=== PATIENT | female | born 1975 | race African-American/Black ===

== ENCOUNTER 2020-06-19 09:10 | Emergency (ER) | payer MEDICAID, SELFPAY ==
--- NOTE | ~2020-06-19 | US_ITS ---
EXAMINATION: US ABDOMEN LIMITED CLINICAL INFORMATION: Right upper quadrant pain, positive Vegas's sign. COMPARISON: None TECHNIQUE: Real-time imaging of the right upper quadrant abdominal viscera. FINDINGS: PANCREAS: Visualized portions unremarkable. The tail is partially obscured by bowel gas shadowing. LIVER: Diffuse increased echotexture without focal abnormality. GALLBLADDER: Unremarkable. COMMON BILE DUCT: Normal in caliber measuring 0.3 cm in diameter. RIGHT KIDNEY: 11.3 cm. Unremarkable. FREE FLUID: None. US/US abdomen limited IMPRESSION: Hepatic steatosis without other significant abnormality.
[2020-06-19 09:19] VITALS: BP 104/55; PULSE 71; RESP 20; TEMP 36.6; O2SAT 97; BMI 33.6
[2020-06-19 10:58] LABS: Glucose Urine UA NEG (NEG); Leukocyte Esterase Urine NEG (NEG); Nitrite Urine POS (NEG); PH 5.5 (5.0-8.0); Specific Gravity - Urine >= 1.030 (1.005-1.025); UACC Culture Trigger YES; Urine Blood NEG (NEG); Urine Ketones NEG (NEG); Urine Protein TRACE MG/DL (NEG-TRACE)
[2020-06-19 10:59] LABS: Appearance Urine HAZY; Color Urine YELLOW
[2020-06-19 11:22] LABS: Bacteria Urine 3+ /LPF; RBC Urine 0-2 /HPF (0); Squamous Epithelial Cell Urine 2+ /LPF
--- NOTE | 2020-06-19 11:39 | ED_ITS ---
HPI - Abdominal Pain General Chief Complaint: Abdominal Pain Stated Complaint: UPPER ABD PAIN Time Seen by Provider: 06/19/20 11:23 Source: patient Mode of arrival: ambulatory Limitations: no limitations History of Present Illness HPI narrative: Patient comes emergency room complaining of right upper quadrant pain for the last 2 days. Patient states she has noticed whenever she eats greasy foods, the pain gets worse. However, since yesterday, patient has been avoiding to eat because every time she eats anything, she has significant right upper quadrant pain. This morning, patient woke up with the pain and has not gone away, this time unrelated to meals. Patient complaining of nausea, no vomiting or diarrhea. Patient denies fever, no URI or UTI symptoms MD elicited complaint: abdominal pain Related Data Allergies Allergy/AdvReac Type Severity Reaction Status Date / Time penicillin V Allergy Unknown rash Verified 09/30/18 00:00 Review of Systems Review of Systems Constitutional : No Weight loss, No Fever, No Chills, No Night Sweats, No Fati diana, No Malaise ENT/Mouth : No Hearing loss, No Ear Pain, No Nasal Congestion, No Sinus Pain, No Hoarseness, No sore throat, No Rhinorrhea, No Swallowing Difficulty Eyes: No Eye Pain, No Swelling, No Redness, No Foreign Body, No Discharge, No Vision Changes Cardiovascular : No Chest Pain, No SOB, No Dyspnea on Exertion, No Orthopnea, No Edema, No Palpitations Respiratory : No Cough, No Sputum, No Wheezing, No Smoke Exposure, No Dyspnea Gastrointestinal : Complaining of nausea, no vomiting No Diarrhea, No Constipation, complaining of right upper quadrant abdominal Pain, No Hematochezia, No Melena Genitourinary : no irregular bleeding, No Dysuria, No Urinary Frequency, No Hematuria, No Urinary Incontinence, No Urgency, No Flank Pain, No Urinary Flow Changes, No Hesitancy Musculoskeletal : No joint pain, No Myalgias, No Joint Swelling Skin : No Skin Lesions, No rash Neuro : No Weakness, No Numbness, No Paresthesias, No Loss of Consciousness, No Dizziness, No Headache Psych : No Anxiety/Panic, No Depression, No SI/HI/AH/VH, No Social Issues, Heme/Lymph: No Bruising, No Bleeding,No Lymphadenopathy Endocrine : No Polyuria, No Polydipsia, No Temperature Intolerance Physical Exam Vital Signs: Vital Signs: Last Vital Signs Temp 97.8 F 06/19/20 09:19 Pulse 64 06/19/20 12:24 Resp 18 06/19/20 12:24 BP 104/47 L 06/19/20 12:24 Pulse Ox 100 06/19/20 12:24 Body Mass Index 33.6 Appearance: Alert. Oriented X3. No acute distress. Eyes: Pupils equal, round and reactive to light. ENT: Pharynx normal. Neck: Normal inspection. Neck supple. No lymph nodes noted. No crepitus CVS: Normal heart rate and rhythm. Pulses normal. Normal S1 and S2 Respiratory: No respiratory distress. Breath sounds normal. No Wheezing. No rales Abdomen: Soft , tenderness to palpation in epigastric area, positive Vegas sign, guarding, no rebound, No rigidity. No distention. Skin: Skin warm and dry. Normal skin color. Normal skin turgor. Extremities: No lower extremity edema. No lower extremity edema. No Lacerations. No Rash Neuro: Oriented X 3. No motor deficit. No sensory deficit. Moving all extermities. No slurred speech. Course Course Course Narrative: I discussed the labs and imaging with the patient, no evidence of acute cholecystitis. I sent, patient feeling better. Discussed with the patient that she has a big steatosis, patient will follow-up with her primary care physician. MDM - Abdominal Pain Differential Diagnosis Differential diagnosis: Likely abdominal pain, calculus of kidney and pa ncreatitis Lab Data Result diagrams: 06/19/20 11:49 06/19/20 11:49 Labs: Lab Results 06/19/20 06/19/20 06/19/20 Range/Units 10:28 11:49 11:49 WBC 7.9 (4.8-10.8) X10*3/uL RBC 4.37 (4.20-5.50) X10*6/uL Hgb 10.1 L (12.0-16.0) g/dl Hct 33.4 L (37-47) % MCV 76.4 L (80-98) fL MCH 23.1 L (27.0-33.0) pg MCHC 30.2 L (31.0-35.0) g/dl RDW 16.2 H (11.0-16.0) % Plt Count 300 (160-400) X10*3/uL MPV 10.2 (9.4-12.3) fL Immature Gran % (Auto) 0.5 H (0.0-0.4) % Neut % (Auto) 58.7 (45-73) % Lymph % (Auto) 33.6 (20-40) % [place] % (Auto) 5.6 (2-11) % Eos % (Auto) 1.1 (0-4) % Baso % (Auto) 0.5 (0-2) % Lymph # (Auto) 2.7 (1.2-4.9) X10*3/uL [place] # (Auto) 0.4 (0.1-1.2) X10*3/uL Eos # (Auto) 0.1 (0.0-0.4) X10*3/uL Baso # (Auto) 0.0 (0.0-0.2) X10*3/uL Abs Immat Gran (auto) 0.04 H (0.00-0.03) X10*3/uL Absolute Neuts (auto) 4.6 (2.0-8.3) X10*3/uL Absolute Nucleated RBC 0.000 (0.0-0.012) X10*3/uL Nucleated RBC % (auto) 0.0 (0.0-0.2) /100WBC Sodium 139 (135-145) mmol/L Potassium 4.0 (3.3-5.1) mmol/L Chloride 104 (96-108) mmol/L Carbon Dioxide 27 (22-29) mmol/L Anion Gap 12 (12-20) BUN 9 (9-16) mg/dL Creatinine 0.70 (0.5-1.4) mg/dL Estim Creat Clear Calc 103.4 Estimated GFR > 60 Random Glucose 86 (60-115) mg/dL Calcium 8.7 (8.4-10.2) mg/dL Total Bilirubin 0.3 (0.0-1.0) mg/dL Direct Bilirubin < 0.2 (0.0-0.5) mg/dL AST 68 H (5-31) U/L ALT 68 H (0-31) U/L Alkaline Phosphatase 100 (39-117) U/L Total Protein 8.0 (6.5-8.0) g/dL Albumin 4.2 (3.5-5.0) g/dL Lipase 11 (8-78) U/L Urine Color YELLOW Urine Appearance HAZY Urine pH 5.5 (5.0-8.0) Ur Specific [place] >= 1.030 H (1.005-1.025) Urine Protein TRACE (NEG-TRACE) MG/DL Urine Glucose (UA) NEG (NEG) MG/DL Urine Ketones NEG (NEG) MG/DL Urine Blood NEG (NEG) Urine Nitrite POS H (NEG) Ur Leukocyte Esterase NEG (NEG) Urine RBC 0-2 (0) /HPF Urine WBC 1-4 (0-4) /HPF Ur Squamous Epith Cells 2+ /LPF Urine Bacteria 3+ /LPF Imaging Data US - abdomen: Radiologist's impression: FINDINGS: PANCREAS: Visualized portions unremarkable. The tail is partially obscured by bowel gas shadowing. LIVER: Diffuse increased echotexture without focal abnormality. GALLBLADDER: Unremarkable. COMMON BILE DUCT: Normal in caliber measuring 0.3 cm in diameter. RIGHT KIDNEY: 11.3 cm. Unremarkable. FREE FLUID: None. US/US abdomen limited IMPRESSION: Hepatic steatosis without other significant abnormality. Discharge Plan Discharge Clinical Impression: Abdominal pain Qualifiers: Abdominal location: right upper quadrant Qualified Code(s): R10.11 - Right upper quadrant pain Patient Disposition: Home, Self-Care Instructions: Abdominal Pain (ED) Additional Instructions: Please follow-up with your primary care physician tomorrow. If you have any worsening or new symptoms, please return to the emergency room or call 1 [facility] Past Medical History Medical History (Updated 06/19/20 @ 13:23 by Shelley Koenig MD) Anemia Anxiety Asthma Depression Pre-diabetes Surgical History H/O tubal ligation Social History Social History Smoking Status: Never smoker Use of substances other than those prescribed or required for medical reasons: No Advance Directives: No Advance Directives Information Provided: No
[2020-06-19] MEDS: 0.9 % Sodium Chloride 1,000 ML 999 ML IVCONT (11:50)
[2020-06-19 11:59] LABS: MANUAL DIFF FLAG NO
[2020-06-19 12:00] LABS: Basophils Percent Auto 0.5 % (0-2); Eosinophils Absolute Auto 0.1 X10*3/uL (0.0-0.4); Eosinophils Percent Auto 1.1 % (0-4); Hematocrit 33.4 % (37-47); Hemoglobin 10.1 g/dl (12.0-16.0); Imm Gran Abs Auto 0.04 X10*3/uL (0.00-0.03); Imm Gran Pct Auto 0.5 % (0.0-0.4); Lymphocytes Absolute Auto 2.7 X10*3/uL (1.2-4.9); Lymphocytes Percent Auto 33.6 % (20-40); Mean Corpuscular HGB Conc 30.2 g/dl (31.0-35.0); Mean Corpuscular Hemoglobin 23.1 pg (27.0-33.0); Mean Corpuscular Volume 76.4 fL (80-98); Mean Platelet Volume 10.2 fL (9.4-12.3); Monocytes Absolute Auto 0.4 X10*3/uL (0.1-1.2); Monocytes Percent Auto 5.6 % (2-11); Neutrophils Absolute Auto 4.6 X10*3/uL (2.0-8.3); Neutrophils Percent Auto 58.7 % (45-73); Platelet Count 300 X10*3/uL (160-400); Red Blood Count 4.37 X10*6/uL (4.20-5.50); Red Cell Distribution Width 16.2 % (11.0-16.0); White Blood Count 7.9 X10*3/uL (4.8-10.8)
[2020-06-19 12:23] LABS: Alanine Aminotransferase 68 U/L (0-31); Albumin Level 4.2 g/dL (3.5-5.0); Alkaline Phosphatase 100 U/L (39-117); Anion Gap 12 (12-20); Aspartate Amino Transferase 68 U/L (5-31); Bilirubin Direct < 0.2 mg/dL (0.0-0.5); Bilirubin Total 0.3 mg/dL (0.0-1.0); Blood Urea Nitrogen 9 mg/dL (9-16); Calcium 8.7 mg/dL (8.4-10.2); Carbon Dioxide 27 mmol/L (22-29); Chloride 104 mmol/L (96-108); Creatinine Clr Calc Pharmacy 103.4; Estimated Glomerular Filt Rate > 60; Glucose Random 86 mg/dL (60-115); Lipase 11 U/L (8-78); Sodium 139 mmol/L (135-145)
[2020-06-19 12:24] VITALS: BP 104/47; PULSE 64; RESP 18; O2SAT 100
[2020-06-19] MEDS: Ketorolac Tromethamine 30 MG/ML VIAL IVPUSH (13:34)
== END 2020-06-19 13:41 | disposition home or self-care (01) ==
PROVIDERS: Emergency Provider Emergency Medicine; PCP Internal Medicine
DX: R10.11 Right upper quadrant pain (principal); R73.03 Prediabetes; J45.909 Unspecified asthma, uncomplicated
CPT/HCPCS: 36415; 76705; 80048; 80076; 81001; 81003; 83690; 85025; 87086; 87088; 87186; 96361; 96374; 99284; J1885

== ENCOUNTER 2020-06-22 11:27 | Outpatient (REF) | payer MEDICAID, SELFPAY ==
--- NOTE | ~2020-06-22 | US_ITS ---
EXAMINATION: ULTRASOUND PELVIS COMPLETE. CLINICAL INFORMATION: Irregular menses. COMPARISON: Ultrasound pelvis 06/10/2018 TECHNIQUE: Transabdominal and transvaginal ultrasound the pelvis is performed. FINDINGS: The uterus is anteverted and anteflexed measuring 9.7 cm in length, 5.6 cm in AP and 6.3 cm in transverse dimension. The endometrium is heterogeneous with thickness of 1.9 cm. There are few subcentimeter hypoechoic cystic areas with the largest area measuring 0.8 cm.. There is a hypoechoic lesion in the posterior uterus measuring 1.3 x 1.4 x 1.4 cm suggestive of fibroids. No additional lesions seen. There are small anechoic nabothian cysts in the cervix The right ovary measures 3.2 x 9.9 x 2.0 cm and volume 6.37 mL. It is unremarkable. Previously right ovary measured 1.7 x 2.4 x 1.6 cm and volume 3.4 mL. The left ovary measures 3.8 x 2.4 x 1.9 cm and volume 9.1 mL. There is a dominant follicle measuring 1.8 cm. Previously left ovary measured 1.5 x 1.9 x 1.4 cm and volume 2.2 mL. US/US pelvic complete IMPRESSION: Unremarkable ovaries. Small nabothian cysts in cervix. The uterus is unremarkable except for heterogeneous appearing endometrium and endometrial cyst.
--- NOTE | ~2020-06-22 | US_ITS ---
EXAMINATION: ULTRASOUND PELVIS COMPLETE. CLINICAL INFORMATION: Irregular menses. COMPARISON: Ultrasound pelvis 06/10/2018 TECHNIQUE: Transabdominal and transvaginal ultrasound the pelvis is performed. FINDINGS: The uterus is anteverted and anteflexed measuring 9.7 cm in length, 5.6 cm in AP and 6.3 cm in transverse dimension. The endometrium is heterogeneous with thickness of 1.9 cm. There are few subcentimeter hypoechoic cystic areas with the largest area measuring 0.8 cm.. There is a hypoechoic lesion in the posterior uterus measuring 1.3 x 1.4 x 1.4 cm suggestive of fibroids. No additional lesions seen. There are small anechoic nabothian cysts in the cervix The right ovary measures 3.2 x 9.9 x 2.0 cm and volume 6.37 mL. It is unremarkable. Previously right ovary measured 1.7 x 2.4 x 1.6 cm and volume 3.4 mL. The left ovary measures 3.8 x 2.4 x 1.9 cm and volume 9.1 mL. There is a dominant follicle measuring 1.8 cm. Previously left ovary measured 1.5 x 1.9 x 1.4 cm and volume 2.2 mL. US/US transvaginal IMPRESSION: Unremarkable ovaries. Small nabothian cysts in cervix. The uterus is unremarkable except for heterogeneous appearing endometrium and endometrial cyst.
== END 2020-06-22 11:28 | disposition home or self-care (01) ==
LOC: HO.US 11:27
PROVIDERS: Visit Provider Internal Medicine
DX: N92.5 Other specified irregular menstruation (principal)
CPT/HCPCS: 76830; 76856

== ENCOUNTER 2020-08-17 11:39 | Outpatient (REF) | payer MEDICAID, SELFPAY ==
[2020-08-17 14:28] LABS: MANUAL DIFF FLAG NO
[2020-08-17 14:38] LABS: Basophils Percent Auto 0.2 % (0-2); Eosinophils Absolute Auto 0.1 X10*3/uL (0.0-0.4); Eosinophils Percent Auto 1.3 % (0-4); Hematocrit 31.4 % (37-47); Hemoglobin 9.2 g/dl (12.0-16.0); Imm Gran Abs Auto 0.03 X10*3/uL (0.00-0.03); Imm Gran Pct Auto 0.4 % (0.0-0.4); Lymphocytes Absolute Auto 2.8 X10*3/uL (1.2-4.9); Lymphocytes Percent Auto 33.7 % (20-40); Mean Corpuscular HGB Conc 29.3 g/dl (31.0-35.0); Mean Corpuscular Hemoglobin 22.8 pg (27.0-33.0); Mean Corpuscular Volume 77.7 fL (80-98); Mean Platelet Volume 10.6 fL (9.4-12.3); Monocytes Absolute Auto 0.5 X10*3/uL (0.1-1.2); Monocytes Percent Auto 6.1 % (2-11); Neutrophils Absolute Auto 4.8 X10*3/uL (2.0-8.3); Neutrophils Percent Auto 58.3 % (45-73); Platelet Count 321 X10*3/uL (160-400); Red Blood Count 4.04 X10*6/uL (4.20-5.50); Red Cell Distribution Width 16.4 % (11.0-16.0); White Blood Count 8.2 X10*3/uL (4.8-10.8)
[2020-08-17 15:17] LABS: Ferritin 12 ng/mL (10-250)
[2020-08-17 15:33] LABS: Folate 10.3 ng/mL (> or = 4.0); Vitamin B12 240 pg/mL (200-900)
== END 2020-08-17 11:40 | disposition home or self-care (01) ==
LOC: HO.LAB 11:39
PROVIDERS: PCP Internal Medicine; Referring Provider Internal Medicine; Visit Provider Physician Assistant
DX: R74.01 Elevation of levels of liver transaminase levels (principal); D64.9 Anemia, unspecified; K59.09 Other constipation; K21.9 Gastro-esophageal reflux disease without esophagitis; R10.11 Right upper quadrant pain; R14.0 Abdominal distension (gaseous); R73.03 Prediabetes; Z88.0 Allergy status to penicillin; Z98.51 Tubal ligation status
CPT/HCPCS: 36415; 82607; 82728; 82746; 85025; 99202

== ENCOUNTER 2020-08-23 13:22 | Outpatient (REF) | payer MEDICAID, SELFPAY | END 2020-08-23 13:23 | disposition home or self-care (01) | LOC: HO.LNP 13:22 | PROVIDERS: Visit Provider Physician Assistant | DX: A04.8 Other specified bacterial intestinal infections (principal) | CPT/HCPCS: 87338 ==

== ENCOUNTER 2020-09-06 11:42 | Day surgery (SDC) | payer MEDICAID, SELFPAY ==
[2020-08-31 11:33] VITALS: BMI 38.4
--- NOTE | 2020-09-05 09:18 | P.CONAN_ITS ---
Documented by User: Lalitha Rivera 09/05/20 09:20 HPI - Anesthesia Eval Consult details Narrative: 45yo F for Upper Endoscopy and Colonoscopy [facility] Active Problems Active Problems: All Active Problems (Updated 08/17/20 @ 15:30 by Celeste Barros PA-C) Language barrier (Acute) History of ulcer disease (Acute) Acid reflux (Acute) Chronic constipation (Acute) Anemia (Acute) Past Medical History Medical History Anemia Anxiety Asthma Chronic constipation Depression History of ulcer disease Pre-diabetes Family History Family History Mother Diabetes Father Diabetes Heart attack Surgical History Surgical History H/O tubal ligation Social History Social History Household Members: Significant Other Alcohol intake: never Smoking Status: Never smoker Use of substances other than those prescribed or required for medical reasons: No Advance Directives Information Provided: No Current occupational status: employed Current occupation: [employer] Allergies Allergy/AdvReac Type Severity Reaction Status Date / Time penicillin V Allergy Intermediate rash Verified 08/31/20 11:27 Exam Exam Date and Time: September 05, 2020 0918 Height,Weight and Vital Signs: Height 5 ft 3 in Weight 98.43 kg Pertinent Lab Results Pertinent Lab Results: Laboratory Tests 06/19/20 08/17/20 11:49 13:19 WBC 8.2 Hgb 9.2 L Hct 31.4 L Plt Count 321 Sodium 139 Potassium 4.0 Chloride 104 Carbon Dioxide 27 BUN 9 Creatinine 0.70 Assessment and Plan Assessment Anesthesia Assessment: Chart Reviewed Documented by User: Vickie Maria 09/06/20 13:40 PMFSH Past Medical History Medical History Anemia Anxiety Asthma Chronic constipation Depression History of ulcer disease Pre-diabetes Family History Family History Mother Diabetes Father Diabetes Heart attack Family history of problems with anesthesia: No Surgical History Surgical History H/O tubal ligation History of Problems with Anesthesia: No Social History Social History Household Members: Significant Other Alcohol intake: never Smoking Status: Never smoker Use of substances other than those prescribed or required for medical reasons: No Advance Directives Information Provided: No Current occupational status: employed Current occupation: [employer] Meds Allergies Allergy/AdvReac Type Severity Reaction Status Date / Time penicillin V Allergy Intermediate rash Verified 08/31/20 11:27 Exam Height,Weight and Vital Signs: Vital Signs Temp Pulse Resp BP Pulse Ox 09/06/20 12:17 97.2 F 59 16 120/62 99 Airway Mallampati Class: II TM Dist: >3cm Neck ROM: Full Loose/Missing/Broken Teeth: Yes (Missing some) Heart: RRR Lungs: CTAB Assessment and Plan Assessment Anesthesia Assessment: Anesthesia Plan Discussed and Chart Reviewed Final Anesthetic Review NPO: Yes ASA Class: III Final Preanesthetic Review: No Changes in Pt Med Stat, Meds/Allgs Chart Reviewed, Consent Obtained/Reviewed and Anes Risks/Benef Reviewed Patient Risk: Intermediate Procedure Risk: Low Assessment/Block/Sedation in SS: Assess/Block/Sedation-SS Anesthetic Plan Anesthetic Plan: MAC: Disposition: Standard PACU
[2020-09-06 12:17] VITALS: BP 120/62; PULSE 59; RESP 16; TEMP 36.2; O2SAT 99
[2020-09-06] MEDS: Lactated Ringers 1,000 ML 100 ML IVCONT (12:28)
--- NOTE | 2020-09-06 14:06 | P.OP_ITS ---
Operative Note Operative Note Date of Service: 09/06/20 Narrative: Pre-op diagnosis: Colon cancer screening, right upper quadrant pain, chronic constipation, abdominal bloating Post-op diagnosis: other (Gastritis, diverticulosis) Procedure: FLEXIBLE TRANSORAL UPPER GASTROINTESTINAL ENDOSCOPY WITH BIOPSIES AND COLONOSCOPY TILL CECUM UPPER ENDOSCOPY Consent: Indications for the procedure and potential complications of bleeding, perforation, reaction to medications and missed diagnosis were discussed with the patient and informed consent was obtained. Instrument: Olympus GIF H 190 mid size upper endoscope Monitoring: Vital signs and clinical assessment, continuous EKG monitoring, Pulse oximetry, Carbon Dioxide monitoring and blood pressure monitoring were done throughout the procedure. Procedure: The patient was placed in the left lateral decubitis position and pre-procedure medications were administered and a bite block was placed. The endoscope was inserted into the mouth and advanced under direct vision to the third part of duodenum. A careful inspection was made as the upper endoscope was withdrawn including a retroflexed examination of the proximal stomach; Findings and interventions are described below. Findings: Larynx: Normal Esophagus: GE junction at 36 cms.. No esophagitis or Tamayo's. Stomach: Moderate diffuse gastric erythema with submucosal hemorrhages in the gastric body. Biopsies were obtained from the body and antrum. Grade 2 flap valve on retroflexed examination of the cardia. Duodenum: Normal bulb and descending duodenum. Biopsies were obtained from 3rd part of duodenum to check for celiac sprue. Intervention: Biopsies as noted above COLONOSCOPY PROCEDURE NOTE Consent: Indications for the procedure and potential complications of bleeding, perforation, reaction to medications and missed diagnosis were discussed with the patient and informed consent was obtained. Instrument: Olympus PCF H 190 L variable stiffness pediatric colonoscope Monitoring: Vital signs and clinical assessment, intermittent blood pressure monitoring, continuous EKG monitoring, Pulse oximetry and Carbon Dioxide monitoring were done throughout the procedure. Colon withdrawl time was 35 minutes. Procedure: The patient was placed in the left lateral decubitis position and pre-procedure medications were administered. After a digital rectal examination of the ano-rectum, the video colonoscope was inserted into the rectum and advanced through the colon to the cecum. The colonoscope was slowly withdrawn in a retrograde panoramic fashion and the colon mucosa was carefully examined including a retroflexed view of the rectum. Findings and interventions are described below. Procedure Difficulty: : Without difficulty Findings: Terminal Ileum: Not evaluated Cecum: Partially evaluated due to poor prep Ascending Colon: Partially evaluated due to poor prep Transverse Colon: Normal Descending Colon: Moderate diverticulosis Sigmoid Colon: Severe diverticulosis Rectum: Normal Ano-rectum: Perianal skin tags Colon preparation: Good after copious irrigation in the transverse and left colon and poor in the right colon. Impression and Post Procedure Diagnosis: Endoscopy Findings: STOMACH: Gastritis DUODENUM: Normal - biopsied to check for celiac sprue Colonoscopy Findings: No polyps were detected Moderate to severe diverticulosis seen in the left colon Plan: Await pathology results Patient has an appointment on 09/26/20 in the GI [facility] with RACHEL Carrillo . Repeat Colonoscopy interval based on path results - in 1-2 years due to fair to poor prep in the right colon OR consider checking a stool FIT test and if negative, repeat colon in 5 yrs. Above findings were reviewed with the patient and Gastritis and diverticulosis handouts were given in the discharge area Surgeon: Tawanna Cisneros MD Was an Hand Spring Former used for this Procedure?: Yes Hand Spring Former: Kia Lee Estimated blood loss (mL): 0 Pathology: other (A. SMALL BOWEL BX'S R/O CELIACS B. GASTRIC ANTRUM BX'S R/O H. PYLORI C. GASTRIC BODY BX'S R/O GASTRITIS) Condition: stable Disposition: PACU
--- NOTE | 2020-09-06 14:06 | MHC.SHP ---
Pre-Procedural Eval Section A The patient is an INPATIENT: No Changes since office visit: Yes Patient answered all questions; No Cold of Flu in the past 2 weeks, No New Medical Problems and No Changes in Medication The History & Physical has been completed within 30 days and I have reviewed it.: Yes Section B Chief Complaint: Anemia Allergies: Allergies Allergy/AdvReac Type Severity Reaction Status Date / Time penicillin V Allergy Intermediate rash Verified 08/31/20 11:27 Exam Surgical H&P Exam: Normal: Heart, Normal: Lungs, Normal: Extremities and Normal: Abdomen Plan Diagnosis/Plan: Unchanged I have reviewed the history and physical and performed a pertinent physical examination on my patient. No changes have occurred unless specified.
[2020-09-06 15:08] VITALS: BP 109/57; PULSE 63; RESP 14; TEMP 36.1; O2SAT 97
[2020-09-06 15:22] VITALS: BP 131/86; PULSE 61; RESP 16; TEMP 36.1; O2SAT 98
== END 2020-09-06 15:52 ==
LOC: HO.SSS 11:42
PROVIDERS: PCP Internal Medicine; Visit Provider Internal Medicine Gastroenterology
PROC: (CPT 45378; principal; 2020-09-06 12:20)
DX: Z12.11 Encounter for screening for malignant neoplasm of colon (principal); K57.30 Diverticulosis of large intestine without perforation or abscess without bleeding; K64.4 Residual hemorrhoidal skin tags; K59.09 Other constipation; D64.9 Anemia, unspecified; K29.51 Unspecified chronic gastritis with bleeding; B96.81 Helicobacter pylori [H. pylori] as the cause of diseases classified elsewhere; J45.909 Unspecified asthma, uncomplicated; Z79.899 Other long term (current) drug therapy; Z88.0 Allergy status to penicillin
CPT/HCPCS: 45378; 43239; 88305; 88342; J3010

== ENCOUNTER 2020-09-15 14:18 | Outpatient (REF) | payer MEDICAID, SELFPAY ==
--- NOTE | ~2020-09-15 | XR_ITS ---
EXAMINATION: CR X-RAY THORACIC AND LUMBAR SPINE 3 VIEW CLINICAL INFORMATION: Back pain. COMPARISON: None TECHNIQUE: 3 views each of the thoracic and lumbar spine were obtained. FINDINGS: Thoracic spine: Normal thoracic kyphosis and spinal alignment is seen. The vertebral bodies and intervertebral disc spaces are unremarkable. There is no acute fracture. The soft tissues are unremarkable. Lumbar spine: There is normal lumbar lordosis and spinal alignment. The vertebral bodies and intervertebral disc spaces are unremarkable. There is no acute fracture. The soft tissues are unremarkable. XR/XR lumbar spine 2-3V IMPRESSION: No acute fracture or significant degenerative changes.
--- NOTE | ~2020-09-15 | XR_ITS ---
EXAMINATION: CR X-RAY THORACIC AND LUMBAR SPINE 3 VIEW CLINICAL INFORMATION: Back pain. COMPARISON: None TECHNIQUE: 3 views each of the thoracic and lumbar spine were obtained. FINDINGS: Thoracic spine: Normal thoracic kyphosis and spinal alignment is seen. The vertebral bodies and intervertebral disc spaces are unremarkable. There is no acute fracture. The soft tissues are unremarkable. Lumbar spine: There is normal lumbar lordosis and spinal alignment. The vertebral bodies and intervertebral disc spaces are unremarkable. There is no acute fracture. The soft tissues are unremarkable. XR/XR thoracic spine 3V IMPRESSION: No acute fracture or significant degenerative changes.
== END 2020-09-15 14:19 | disposition home or self-care (01) ==
LOC: HO.XRAY 14:18
PROVIDERS: Absent Provider Internal Medicine; PCP Internal Medicine; Visit Provider Family Medicine
DX: M54.5 Low back pain (principal)
CPT/HCPCS: 72072; 72100

== ENCOUNTER → 2020-09-26 13:21 | Outpatient (BNVA) | payer MEDICAID, SELFPAY | PROVIDERS: PCP Internal Medicine; Referring Provider Internal Medicine; Visit Provider Physician Assistant | DX: D64.9 Anemia, unspecified (principal); A04.8 Other specified bacterial intestinal infections; N92.0 Excessive and frequent menstruation with regular cycle; K59.09 Other constipation; Z78.9 Other specified health status | CPT/HCPCS: 99212 ==